=== PATIENT | male | born 1970 | race Two or more races ===

== ENCOUNTER 2018-02-28 17:55 | Emergency (ER) | payer SELFPAY ==
[~2018-02-28] VITALS: Ht 170.2 cm; Wt 92.0 kg
[2018-02-28 19:48] VITALS: BP 157/99
== END 2018-02-28 19:51 | disposition home or self-care (01) ==
LOC: ER 18:04
DX: B02.9 Zoster without complications (principal); I10 Essential (primary) hypertension; Z87.891 Personal history of nicotine dependence
CPT/HCPCS: 99283